=== PATIENT | female | born 1955 | race Caucasian/White ===

== ENCOUNTER → 2017-05-15 | Day surgery (SDC) | payer BC ==
[~2017-05-15] VITALS: Ht 167.6 cm; Wt 54.8 kg
[~2017-05-15] MED LIST: ACETAMINOPHEN 1000 MG/100 ML 100 ML IV ONE; ACETAMINOPHEN/HYDROcodone 325 MG/5 MG TAB PO ONE; BIOT10TA PO; BUPIVACAINE/EPINEPHRINE 0.5% 50 ML VIAL ONE; CALC500T37 PO; CHLORHEXIDINE GLUCONATE 2 % 1 PACK (2 CLOTHS) TOPICAL PRN; DEXAMETHASONE SOD PHOS 4 MG/ML VIAL IV ONE; DO NOT ADM ANY ANTICOAGULANT DRUGS PRN; FIBE625T10 PO; INSULIN HUMAN REGULAR 1,000 UNITS/10 ML VIAL SQ PRN; LACTATED RINGER'S 1000 ML IV PRN; LIDOCAINE HCL 1% PF 5 ML AMPULE OTHER ONE; LISI10TA3 PO; METOPROLOL TARTRATE 25 MG TAB PO PRN; MIDAZOLAM HCL 2 MG/2 ML VIAL IV ONE; MULT-65 PO; NORC5TAB PO; ONDANSETRON HCL 4 MG/2 ML VIAL IV PUSH ONE; PHENYLEPH/NS 1000 MCG/10 ML SYR IV ONE; PHENYLEPHRINE HCL 10 MG/ML VIAL IV ONE; POVIDONE IODINE 5% (ANTISEPSIS KIT) 4 APPLICATIONS EACH NARE PRN; PROPOFOL 200 MG/20 ML AMP IV ONE; ROCURONIUM INJ 50 MG/5 ML SYRINGE IV PUSH ONE; SODIUM CHLORID 0.9% 500 ML IV PRN; SUGAMMADEX SODIUM 200 MG/2 ML VIAL IV PUSH ONE; VASOPRESSIN 20 UNITS/ML VIAL (IVTITR) ONE; VITA500C18 PO; ePHEDrine/NS 25 MG/5 ML SYR IV ONE
[2017-05-15 16:25] VITALS: BP 91/52; PULSE 92; RESP 20; TEMP 97.6; O2SAT 100
--- NOTE | 2017-05-15 22:23 | MP ---
cc: IRENE ARRIOLA,Loraine Watt M.D., M.D. DATE OF SURGERY 05/15/17 PREOPERATIVE DIAGNOSIS Thyroid nodule in the isthmus of the thyroid in need of pathological diagnosis. POSTOPERATIVE DIAGNOSIS Thyroid nodule in the isthmus of the thyroid in need of pathological diagnosis. PROCEDURE Total thyroid isthmusectomy, i.e., removal of the isthmus and a nodule in the isthmus. ANESTHESIA General SURGEON Dr. Ten Arriola INDICATIONS The patient is a pleasant 61-year-old female who was sent to me by Dr. Smith, the electrostatic powder coating technician, after the patient had a growing nodular in the thyroid. Biopsy was essentially non-diagnostic and it was elected to proceed as above. PROCEDURE IN DETAIL The patient was taken to the operating room and placed in the supine position. After anesthesia, her neck is prepped with Betadine. Time-out is done. We make a curvilinear incision overlying the apex of this mass 2 cm above the sternal notch. We dissect down through the platysma muscle. Strap muscles were then laterally. We dissect down identifying the apex of this nodule. It was very soft, somewhat cystic. We are able dissect the right and left of it using a harmonic scalpel and electrocautery device, we are able to separate this away from normal-appearing thyroid tissue. With obtaining margins circumferentially removing the isthmus, it seemed to be more located on the right side of the isthmus and partial of the right inferior lobe of the thyroid. This was right abutting to the trachea. It was peeled off the trachea with essentially blunt dissection with minimal bleeding. This was amputated using a harmonic scalpel to normal-appearing thyroid tissue. This is then passed off the field. There was excellent hemostasis. After the specimen was removed, we then close the strap muscles and reapproximate the strap muscle with 2-0 Vicryl, platysma muscles closed with 2-0 Vicryl interrupted suture and the skin is closed with 4-0 Vicryl. Steri-Strips and standard sterile bandage was applied. Near the end of the operation, anesthesia had notified me of an episode of brief hypotension that responded to medication. Hypotension was thought to be a result of her antihypertensive meds. See their documentation for full details. She awakened in the operating room, returned to the recovery room with no immediate postop complication. MD ELIZABETH Lott/ /2:55 PM /10:09 PM BACILIO
--- NOTE | 2017-05-15 23:34 | EKG ---
Date Performed: 05/15/2017 Time Performed: 11:33:19 PTAGE: 61 years EKG: Sinus rhythm POSSIBLE RIGHT VENTRICULAR CONDUCTION DELAY MINIMAL ST DEPRESSION BORDERLINE ECG NO PREVIOUS TRACING DOCTOR: Adam Meza Interpretating Date/Time 05/15/2017 23:32:32
== END | disposition home or self-care (01) ==
LOC: HSDC 11:09
PROVIDERS: ATTEND Surgery
DX: D34 Benign neoplasm of thyroid gland (principal); I10 Essential (primary) hypertension
CPT/HCPCS: 00320; 60210; 88307; 93005; J0131; J1100; J2250; J2370; J2405; J3010; J7120